=== PATIENT | male | born 1950 | race American Indian/Alaskan Native ===

== ENCOUNTER 2017-03-17 07:21 | Outpatient (CLI) | payer MEDICARE, OTHER ==
--- NOTE | 2017-03-17 10:15 | Cat Scan Report ---
CT ABDOMEN PELVIS WITHOUT CONTRAST: HISTORY: Right upper quadrant pain. COMPARISON: none. TECHNIQUE: Helical CT in 1.25mm intervals without IV contrast. Sagittal and coronal reconstructions. FINDINGS: Lung bases: Normal. Liver: Normal. Biliary system: Normal. No suggestion of cholelithiasis or biliary dilatation on noncontrast CT. Pancreas: Normal. Spleen: Normal. Kidneys/ureters/bladder: Normal. Adrenal glands: 1.1 cm right adrenal adenoma. The left adrenal gland is normal. Aorta: Normal. Intestines: Within normal limits given no oral contrast was administered. Appendix: Normal. Ascites: None. Adenopathy: None. Musculoskeletal: Within normal limits. IMPRESSION: No acute abdominal process. No clear explanation for right upper quadrant pain. 1.1 cm right adrenal adenoma, likely an incidental finding.
== END 2017-03-17 07:22 | disposition home or self-care (01) ==
LOC: CT 07:21
PROVIDERS: ATTEND Urology
DX: D35.01 Benign neoplasm of right adrenal gland (principal); R10.11 Right upper quadrant pain; R25.0 Abnormal head movements
CPT/HCPCS: 74176

== ENCOUNTER 2018-10-12 09:07 | Outpatient (CLI) | payer MEDICARE, OTHER ==
[2018-10-12 09:53] LABS: Blood Urea Nitrogen 13 mg/dL (9-20)
--- NOTE | 2018-10-12 11:19 | Cat Scan Report ---
CT CHEST WITH CONTRAST INDICATION / CLINICAL INFORMATION: Upper chest pain for one month, hypertension, diabetes. TECHNIQUE: Axial CT images were obtained through the chest after 100 cc of Omnipaque 300 IV contrast. Sagittal a nd coronal reformatted images. All CT scans at this location are performed using CT dose reduction fo r ALARA by means of automated exposure control. COMPARISON: None available. FINDINGS: HEART: No significant abnormality. A 2-lead pacemaker device is in position. THORACIC AORTA: No significant abnormality. MEDIASTINUM and JOSEY: No significant abnormality. LUNGS: No acute air space or interstitial disease. PLEURA: No significant pleural effusion. No pneumothorax. SKELETAL SYSTEM: No significant abnormality. UPPER ABDOMEN: No significant abnormality. ADDITIONAL FINDINGS: None. IMPRESSION: Unremarkable CT chest with contrast. Signer Name: Kareem Humphrey Jr, MD Signed: 10/12/2018 11:15 AM Workstation Name: [id number]
== END 2018-10-12 09:08 | disposition home or self-care (01) ==
LOC: CT 09:07
PROVIDERS: ATTEND Internal Medicine Cardiovascular Disease
DX: R07.9 Chest pain, unspecified (principal); I10 Essential (primary) hypertension; E11.9 Type 2 diabetes mellitus without complications
CPT/HCPCS: 36415; 71260; 82565; 84520; Q9967